=== PATIENT | female | born 1965 ===

== ENCOUNTER 2023-10-02 14:33 | Outpatient (REF) | payer OTHER, SELFPAY ==
[2023-10-02 17:05] LABS: Abs Immature Grans 0.02 10^3/uL (0.0-0.06); Absolute Basophil Count 0.02 10^3/uL (0.0-0.2); Absolute Lymphocyte Count 1.56 10^3/uL (1.2-3.4); Absolute Monocyte Count 0.41 10^3/uL (0.1-0.8); Absolute Neutrophil Count 3.36 10^3/uL (1.2-6.7); Basophils % 0.4; Eosinophils % 3.6; HCT 46.9 % (36.0-46.0); Immature Grans % 0.4; MCH 28.6 pg (27.0-33.0); MCV 89 fL (80-95); MPV 11.6 fL (8.0-11.0); Monocytes % 7.4; Neutrophils % 60.2; Platelet Count 244 10^3/uL (130-400); RBC 5.25 10^6/uL (3.93-5.22); RDW-SD 46.2 fL; WBC 5.57 10^3/uL (4.4-10.8)
[2023-10-02 17:24] LABS: ALT 46 U/L (14-59); AST 31 U/L (15-37); Albumin 4.1 g/dL (3.4-5.0); Alkaline Phosphatase 57 U/L (46-116); Anion Gap 6.4 mmol/L (3-11); BUN 16 mg/dL (7-18); Bilirubin, Total 0.5 mg/dL (0.2-1.0); CO2 27.6 mmol/L (21.0-32.0); CREATININE 0.8 mg/dL (0.55-1.02); Calcium 9.9 mg/dL (8.5-10.1); Calculated LDL 147 mg/dL (<100); Chloride 106 mmol/L (98-107); Cholesterol 230 mg/dL (<200); Estimated GFR 85.35 (mL/min/1.73m2); Glucose 90 mg/dL (74-106); HDL Cholesterol 73 mg/dL (40-60); Potassium 4.1 mmol/L (3.5-5.1); Sodium 140 mmol/L (136-145); TSH (W/Ref FT4) 0.61 uIU/mL (0.36-3.74); Triglyceride 53 mg/dL (<150)
== END 2023-10-02 14:34 | disposition home or self-care (01) ==
LOC: NCHCN 14:33
PROVIDERS: Visit Provider Family Medicine
DX: R53.83 Other fatigue (principal); R79.89 Other specified abnormal findings of blood chemistry
CPT/HCPCS: 80053; 80061; 84443; 85025